=== PATIENT | female | born 1980 | race Caucasian/White ===

== ENCOUNTER 2018-07-17 18:51 | Inpatient (IN) | payer MEDICAID ==
[~2018-07-17] VITALS: Ht 154.9 cm; Wt 53.6 kg
--- NOTE | 2018-07-17 19:08 | NUR ---
PATIENT ARRIVED ON UNIT WALKING WITH HOSPITAL STAFF. ORIENTATED TO ROOM AND STAFF. CALL LIGHT IN REACH.
[2018-07-17 19:32] VITALS: BP 142/92; Ht 154.9 cm; Wt 53.6 kg
--- NOTE | 2018-07-17 23:14 | NUR ---
PATIENT SITTING UP IN BED WATCHING TV. RESPIRATIONS EVEN. NO S/S OF DISTRESS. DENIES ANY NEEDS AT THIS TIME. CALL LIGHT IN REACH.
--- NOTE | 2018-07-17 23:29 | NUR ---
PATIENTS FAMILY MEMBER JUST ARRIVED ON UNIT AND IS AT BEDSIDE.
[2018-07-17 23:51] LABS: BASOPHILS 0.7 % (0-2); EOSINOPHILS 3.2 % (0-7); HEMATOCRIT 37.9 % (36.0-48.0); IMMATURE GRANULOCYTES 0.1 % (0-5); LYMPHOCYTES 30.9 % (15-50); MCHC 34.3 g/dL (31.0-37.0); MCV 87.5 fL (80.0-100.0); MEAN PLATELET VOLUME 11.1 fL (7.4-10.4); MONOCYTES 11.9 % (2-11); NEUTROPHILS 53.2 % (40-80); PLATELET COUNT 239 10x3/uL (130-400); RBC 4.33 10x6/uL (4.00-5.40); RDW 13.4 % (11.5-14.5); WBC 7.5 10x3/uL (4.8-10.8)
[2018-07-18 00:05] VITALS: BP 133/90
[2018-07-18 00:11] LABS: CALC OSMOLALITY 279 mosm/kg (275-300); CALCIUM 8.8 mg/dL (8.5-10.1); CARBON DIOXIDE 24.2 mmol/L (21.0-32.0); CHLORIDE - SERUM 105 mmol/L (98-107); CREATININE - SERUM 0.7 mg/dL (0.6-1.3); GLUCOSE 93 mg/dL (74-106); POTASSIUM - SERUM 3.4 mmol/L (3.5-5.1); SODIUM 141 mmol/L (136-145); UREA NITROGEN 10 mg/dL (7-18); eGFR NON AFRICAN AMERICAN > 90 mL/min (90-120)
--- NOTE | 2018-07-18 02:05 | NUR ---
PERIPHERAL IV STARTED IN LEFT FOREARM 2ND ATTEMPT.
[2018-07-18 04:00] LABS: APPEARANCE CLEAR (CLEAR); COLOR YELLOW (YELLOW); NITRITE NEGATIVE (NEGATIVE); PROTEIN NEGATIVE (NEGATIVE); SPECIFIC GRAVITY 1.015 (1.005-1.020)
[2018-07-18 04:01] LABS: BILIRUBIN NEGATIVE (NEGATIVE); GLUCOSE NEGATIVE (NEGATIVE); KETONE NEGATIVE (NEGATIVE); UROBILINOGEN NORMAL (NORMAL)
[2018-07-18 04:10] VITALS: BP 125/74
[2018-07-18] MEDS ORDERED: PHENAZOPYRIDIN200 MG PO (04:40)
[2018-07-18] MEDS ORDERED: VALIUM 2 MG TAB2 MG PO (04:40)
[2018-07-18] MEDS ORDERED: CELEXA20 MG PO (04:41)
[2018-07-18] MEDS ORDERED: MACROBID100 MG PO (04:41)
--- NOTE | 2018-07-18 04:44 | NUR ---
PATIENT RESTING QUIETLY LAYING IN SUPINE POSITION. LAYING NEXT TO HER IN BED. RESPIRATIONS EVEN. NO S/S OF DISTRESS. CALL LIGHT IN REACH.
[2018-07-18 07:05] LABS: BASOPHILS 0.8 % (0-2); EOSINOPHILS 3.8 % (0-7); HEMATOCRIT 35.8 % (36.0-48.0); HEMOGLOBIN 12.1 g/dL (12-16); IMMATURE GRANULOCYTES 0.2 % (0-5); LYMPHOCYTES 28.6 % (15-50); MCH 29.5 pg (26.0-34.0); MCHC 33.8 g/dL (31.0-37.0); MCV 87.3 fL (80.0-100.0); MEAN PLATELET VOLUME 10.9 fL (7.4-10.4); NEUTROPHILS 54.6 % (40-80); PLATELET COUNT 211 10x3/uL (130-400); RDW 13.6 % (11.5-14.5); WBC 6.6 10x3/uL (4.8-10.8)
[2018-07-18 07:14] LABS: CALC OSMOLALITY 276 mosm/kg (275-300); CALCIUM 8.1 mg/dL (8.5-10.1); CARBON DIOXIDE 26.8 mmol/L (21.0-32.0); CHLORIDE - SERUM 106 mmol/L (98-107); CREATININE - SERUM 0.7 mg/dL (0.6-1.3); GLUCOSE 82 mg/dL (74-106); POTASSIUM - SERUM 3.6 mmol/L (3.5-5.1); SODIUM 140 mmol/L (136-145); UREA NITROGEN 9 mg/dL (7-18); eGFR NON AFRICAN AMERICAN > 90 mL/min (90-120)
--- NOTE | 2018-07-18 08:14 | NUR ---
PT AWAKE AND ORIENTED, LOW GRADE FEVER. NO COMPLAINTS/CONCERNS AT THIS TIME. CL IN REACH, SRX2.
[2018-07-18 09:26] VITALS: BP 140/77
--- NOTE | 2018-07-18 12:47 | NUR ---
I have reviewed this patient and I concur with the Shift Assessment completed by the Licensed Practical Nurse today this shift.
[2018-07-18 15:45] VITALS: BP 133/84
--- NOTE | 2018-07-18 17:44 | NUR ---
REFUSED SCDS, PT UP AD CARMEN.
--- NOTE | 2018-07-18 19:14 | NUR ---
GREETED PATIENT AND INTRODUCED MYSELF. PATIENT IS LAYING IN BED IN SUPINE POSITION. HOB AT 20 DEGREES. RESPIRATIONS EVEN. NO S/S OF DISTRESS. DENIES ANY PAIN. DENIES ANY FURTHER NEEDS. CALL LIGHT IN REACH.
[2018-07-18 20:00] VITALS: BP 144/79
--- NOTE | 2018-07-18 22:58 | NUR ---
DC PERIPHERAL IV IN LEFT WRIST. INFILTRATED.
[2018-07-19] VITALS: BP 141/71
--- NOTE | 2018-07-19 01:42 | NUR ---
PATIENT RESTING QUIETLY WITH EYES CLOSED LAYING ON LEFT SIDE. HOB AT 15 DEGREES. RESPIRATIONS EVEN. NO S/S OF DISTRESS. CALL LIGHT IN REACH.
[2018-07-19 05:19] LABS: UDS - AMPHET NEGATIVE QUAL (NEGATIVE); UDS - BARB NEGATIVE QUAL (NEGATIVE); UDS - BENZO NEGATIVE QUAL (NEGATIVE); UDS - COCAINE NEGATIVE QUAL (NEGATIVE); UDS - OPIATE NEGATIVE QUAL (NEGATIVE); UDS - PCP NEGATIVE QUAL (NEGATIVE); UDS - THC POSITIVE QUAL (NEGATIVE)
--- NOTE | 2018-07-19 07:52 | NUR ---
PT AAOX4, WANTING TO GO TO THE BATHROOM AT THIS TIME I EXPRESSED TO PT IT WAS OKAY TO TAKE IV POOL WITH HER TO THE BATHROOM, NO SIGNS OF DISTRESS NOTED, CL IN REACH WILL CONTINUE TO MONITOR
[2018-07-19 09:20] VITALS: BP 142/89
--- NOTE | 2018-07-19 10:58 | MORECARE ---
CASE MANAGEMENT DISCHARGE SUMMARY PATIENT: KAREN GRACE UNIT: [id number] ADM DATE: 07/17/18 AGE: 37 : 84 SEX: F ROOM/BED: D.1208 AUTHOR: DIONNA AVINA PHYSICIAN: REFERRING PHYSICIAN: KENA HERNANDEZ DO DATE OF SERVICE: 07/19/18 Discharge Plan Patient Name: KAREN GRACE Facility: [facility]:[place] : 1980 Planned Disposition: Home Anticipated Discharge Date: Discharge Date: Expected LOS: Initial Reviewer: [email or web address] Initial Review Date: 07/19/2018 Generated: 07/19/18 11:57 am Patient Name: KAREN GRACE Page [id number] at 1058 All edits/amendments must be made on the electronic document DICTATION DATE: 07/19/18 105 BLIND TEACHER: SIMONE 07/19/18 1057 RPT#: [id number] DC DATE: STATUS: ADM IN [facility] [address] [place] [address] END OF REPORT
--- NOTE | 2018-07-19 11:04 | MORECARE ---
CASE MANAGEMENT DISCHARGE SUMMARY PATIENT: KAREN GRACE UNIT: [id number] ADM DATE: 07/17/18 AGE: 37 : 84 SEX: F ROOM/BED: D.1208 AUTHOR: [email or web address] PHYSICIAN: REFERRING PHYSICIAN: KENA HERNANDEZ DO DATE OF SERVICE: 07/19/18 Discharge Plan Patient Name: KAREN GRACE Facility: [facility]:[place] : 1980 Planned Disposition: Home Anticipated Discharge Date: Discharge Date: Expected LOS: Initial Reviewer: [email or web address] Initial Review Date: 07/19/2018 Generated: 07/19/18 12:04 pm Comments DCP- Discharge Planning Updated by [email or web address]: Michelle Pina on 07/19/18 10:[address] Patient Name: KAREN GRACE Admission Status: Elective Accout number: [id number] Admission Date: 07-17-2018 : 1980 Admission Diagnosis: Attending: KENA HERNANDEZ Current LOS: 2 Anticipated DC Date: Planned Disposition: Home Primary Insurance: [employer] Discharge Planning Comments: CM met with patient about discharge planning. CM explained CM role and verbal consent was given to do dc assessment. CM educated on Home Health, DME and rehab services that are available. Patient states her discharge plan is to return to home with .. States home environment is safe discharge. Denies any discharge planning needs at this time.. States will drive her home upon discharge. CM will continue to follow and assist as needed with discharge planning needs. Preschool Education Director: Michelle Pina DCPIA - Discharge Planning Initial Assessment Updated by [email or web address]: Michelle Pina on 07/19/18 10:59 am * Is the patient Alert and Oriented? Yes * How many steps to enter\exit or inside your home? NA * PCP MARY * Pharmacy [facility] * Preadmission Environment Home with Family * ADLs Independent * Equipment None * List name and contact numbers for known caregivers / representatives who currently or will assist patient after discharge: MISAEL [phone] * Verbal permission to speak to the caregivers and representatives has been obtained from the patient. N/A * Community resources currently utilized None * Additional services required to return to the preadmission environment? No * Can the patient safely return to the preadmission environment? Yes * Has this patient been hospitalized within the prior 30 days at any hospital? No Last DP export: 07/19/18 9:58 a Patient Name: KAREN GRACE Page 24350 at 1104 All edits/amendments must be made on the electronic document DICTATION DATE: 07/19/181103 ZONING TECHNICIAN: SIMONE 07/19/181103 RPT#: [id number] DC DATE: STATUS: ADM IN [facility] [address] [place] [address] END OF REPORT
--- NOTE | 2018-07-19 14:40 | NUR ---
IV DC WITH CATH INTACT, DC INSTUCTIONS GIVEN TO PT SHE VERABLIZES UNDERSTANDING LEAVING VIA AMBULATING STAFF ESCORT OUT IN STABLE CONDITON
--- NOTE | 2018-07-19 15:53 | MORECARE ---
CASE MANAGEMENT DISCHARGE SUMMARY PATIENT: KAREN GRACE UNIT: [id number] ADM DATE: 07/17/18 AGE: 37 : 84 SEX: F ROOM/BED: D.1208 AUTHOR: DIONNA AVINA PHYSICIAN: REFERRING PHYSICIAN: KENA HERNANDEZ DO DATE OF SERVICE: 07/19/18 Discharge Plan Patient Name: KAREN GRACE Facility: [facility]:[place] : 1980 Planned Disposition: Home Anticipated Discharge Date: Discharge Date: 07/19/2018 Expected LOS: Initial Reviewer: [email or web address] Initial Review Date: 07/19/2018 Generated: 07/19/18 4:52 pm Comments DCP- Discharge Planning Updated by [email or web address]: Michelle Pina on 07/19/18 10:[address] Patient Name: KAREN GRACE Admission Status: Elective Accout number: [id number] Admission Date: 07-17-2018 : 1980 Admission Diagnosis: Attending: KENA HERNANDEZ Current LOS: 2 Anticipated DC Date: Planned Disposition: Home Primary Insurance: [employer] Discharge Planning Comments: CM met with patient about discharge planning. CM explained CM role and verbal consent was given to do dc assessment. CM educated on Home Health, DME and rehab services that are available. Patient states her discharge plan is to return to home with .. States home environment is safe discharge. Denies any discharge planning needs at this time.. States will drive her home upon discharge. CM will continue to follow and assist as needed with discharge planning needs. Platinum Smith: Michelle Pina DCPIA - Discharge Planning Initial Assessment Updated by [email or web address]: Michelle Pina on 07/19/18 10:59 am * Is the patient Alert and Oriented? Yes * How many steps to enter\exit or inside your home? NA * PCP MARY * Pharmacy [facility] * Preadmission Environment Home with Family * ADLs Independent * Equipment None * List name and contact numbers for known caregivers / representatives who currently or will assist patient after discharge: MISAEL [phone] * Verbal permission to speak to the caregivers and representatives has been obtained from the patient. N/A * Community resources currently utilized None * Additional services required to return to the preadmission environment? No * Can the patient safely return to the preadmission environment? Yes * Has this patient been hospitalized within the prior 30 days at any hospital? No Last DP export: 07/19/18 10:04 a Patient Name: KAREN GRACE Page 65828 at 1553 All edits/amendments must be made on the electronic document DICTATION DATE: 07/19/181551 FIELD LABORATORY OPERATOR: SIMONE 07/19/181551 RPT#: [id number] DC DATE:07/19/18 STATUS: DIS IN [facility] [address] [place] [address] END OF REPORT
== END 2018-07-19 15:27 | disposition home or self-care (01) | DRG 700 ==
LOC: D.M3 18:51
PROVIDERS: Internal Medicine Nephrology; ADMIT Family Medicine; ATTEND Family Medicine
DX: N28.0 Ischemia and infarction of kidney (principal); N26.1 Atrophy of kidney (terminal); E87.6 Hypokalemia

== ENCOUNTER → 2018-10-22 16:18 | Outpatient (CLI) | payer MEDICAID ==
[2018-07-17 19:32] VITALS: BMI 22.3
[~2018-10-22 16:18] MED LIST: CELEXA20 MG PO; MACROBID100 MG PO; PHENAZOPYRIDIN200 MG PO; VALIUM 2 MG TAB2 MG PO
== END | disposition home or self-care (01) ==
LOC: D.US 16:18
PROVIDERS: ATTEND Family Medicine
DX: R10.9 Unspecified abdominal pain (principal)